=== PATIENT | female | born 1955 | race African-American/Black ===

== ENCOUNTER 2020-10-11 10:33 | Emergency (ER) | payer BC ==
[~2020-10-11] VITALS: Ht 167.6 cm; Wt 64.0 kg
[2020-10-11] MEDS ORDERED: SODIUM CHLORIDE 0.9% 500 ML IVB ONE (11:00)
[2020-10-11] MEDS ORDERED: ONDANSETRON HCL 4 MG/2 ML VIAL IV ONE (11:00)
[2020-10-11] MEDS ORDERED: MORPHINE SULFATE 4 MG/ML SYR/VIAL IV ONE ×2 (11:00→13:45)
[2020-10-11 11:27] LABS: Basophils # (auto) 0 10 ^3/uL (0-0.2); Basophils % (auto) 0.5 % (0.0-2.0); Eosinophils # (auto) 0 10 ^3/uL (0-0.8); Eosinophils % (auto) 0.3 % (0.0-7.0); Hematocrit 35.9 % (36.0-46.0); Lymphocytes # (auto) 0.6 10 ^3/uL (0.4-5.4); Lymphocytes % (auto) 7.8 % (10.0-50.0); Mean Corpuscular Hemoglobin 28.6 pg (28.0-32.0); Mean Corpuscular Hgb Conc. 33.6 g/dL (32.0-36.0); Mean Corpuscular Volume 85.3 fL (80.0-100.0); Monocytes # (auto) 0.6 10 ^3/uL (0-1.3); Monocytes % (auto) 8.6 % (0.0-12.0); Neutrophils # (auto) 5.9 10 ^3/uL (1.6-8.6); Neutrophils % (auto) 82.8 % (37.0-80.0); Red Cell Distribution Width 13.9 % (11.8-14.3); White Blood Cell 7.1 10^3/uL (4.4-10.8)
[2020-10-11 11:45] LABS: Calcium 9.6 mg/dL (8.5-10.1); Potassium 3.9 mmol/L (3.5-5.1)
[2020-10-11 11:51] LABS: Albumin 3.2 g/dL (3.4-5.0); BUN/Creatinine Ratio 11.9; Bilirubin, Total 0.6 mg/dL (0.2-1.0); Total Protein 7.8 g/dL (6.4-8.2)
[2020-10-11 13:38] LABS: Urine Bacteria NONE SEEN /hpf (None Seen); Urine Blood Negative /uL (Negative); Urine Mucus FEW (None Seen); Urine WBC <1 /hpf (0 - 5)
[2020-10-11] MEDS ORDERED: GASTROGRAFIN 120 ML SOL ONE (14:24)
[2020-10-11] MEDS ORDERED: SODIUM CHLORIDE 0.9% 1,000 ML IV ONE ×2 (18:15)
[2020-10-11 21:02] VITALS: BP 109/46
== END 2020-10-11 21:16 | disposition home or self-care (01) ==
LOC: ER 10:33
DX: K56.1 Intussusception (principal); C80.1 Malignant (primary) neoplasm, unspecified; C78.5 Secondary malignant neoplasm of large intestine and rectum; Z88.6 Allergy status to analgesic agent
CPT/HCPCS: 36415; 74176; 74270; 80053; 81001; 83690; 85025; 93005; 96361; 96374; 96375; 96376; 99285; J2270; J2405; Q9963

== ENCOUNTER 2020-10-12 15:50 | Emergency (ER) | payer BC ==
[~2020-10-12] VITALS: Ht 167.6 cm; Wt 59.4 kg
[2020-10-12 15:55] VITALS: BP 91/50
== END 2020-10-12 19:03 | disposition left against medical advice (07) ==
LOC: ER 15:50
DX: K62.89 Other specified diseases of anus and rectum (principal); R10.31 Right lower quadrant pain; Z53.21 Procedure and treatment not carried out due to patient leaving prior to being seen by health care provider
CPT/HCPCS: 93005

== ENCOUNTER 2020-11-07 13:48 | Emergency (ER) | payer BC ==
[~2020-11-07] VITALS: Ht 167.6 cm; Wt 86.2 kg
[2020-11-07] MEDS ORDERED: KETOROLAC TROMETH 60MG/2ML VIAL IM ONE (14:30)
[2020-11-07 15:15] VITALS: BP 98/56
== END 2020-11-07 15:41 | disposition home or self-care (01) ==
LOC: ER 13:52
DX: M17.0 Bilateral primary osteoarthritis of knee (principal); M71.22 Synovial cyst of popliteal space [Baker], left knee; M71.21 Synovial cyst of popliteal space [Baker], right knee; Z88.6 Allergy status to analgesic agent
CPT/HCPCS: 73700; 96372; 99285; J1885